=== PATIENT | female | born 1985 | race Caucasian/White ===

== ENCOUNTER 2017-12-17 14:43 | Emergency (ER) | payer SELFPAY ==
[2017-12-17] MEDS ORDERED: diphenhydrAMINE 50 MG/ML VIAL ONE (17:10)
[2017-12-17] MEDS ORDERED: Metoclopramide HCl 10 MG/2 ML VIAL ONE (17:10)
[2017-12-17 18:02] LABS: Pregnancy Test - Urine (BHCG) Negative (Negative); Pregu Control Background? CLEAR/WHITE (CLR/WHITE); Pregu Control Bar Appear? YES (CONTROL BAR); Specific Gravity 1.024 (1.002-1.036)
== END 2017-12-17 19:05 | disposition home or self-care (01) ==
LOC: ERS 14:43
DX: R51 Headache (principal); F41.9 Anxiety disorder, unspecified; F32.9 Major depressive disorder, single episode, unspecified; Z87.891 Personal history of nicotine dependence
CPT/HCPCS: 81025; 96365; 96375; J1200; J2765

== ENCOUNTER 2017-12-20 13:23 | Emergency (ER) | payer SELFPAY | END 2017-12-20 15:54 | disposition home or self-care (01) | LOC: ERS 13:23 | DX: L03.012 Cellulitis of left finger (principal); G43.909 Migraine, unspecified, not intractable, without status migrainosus; F41.9 Anxiety disorder, unspecified; F32.9 Major depressive disorder, single episode, unspecified; Z87.891 Personal history of nicotine dependence | CPT/HCPCS: 10060; 87070; 87077; 87186; 87205 ==

== ENCOUNTER 2018-01-04 08:14 | Emergency (ER) | payer SELFPAY ==
--- NOTE | 2018-01-04 08:52 | RAD ---
CHEST TWO VIEWS: Comparison: None. History: Chest wall pain. FINDINGS: Two views of the chest show normal sized cardiomediastinal silhouette. There is no evidence of consol idation, mass, or pleural effusion. The bones are unremarkable. IMPRESSION: No evidence of acute cardiopulmonary disease. POS: [facility]
[2018-01-04] MEDS ORDERED: Benzonatate 100 MG CAP ONE (09:44)
[2018-01-04] MEDS ORDERED: Ibuprofen 200 MG TAB ONE (09:44)
== END 2018-01-04 09:50 | disposition home or self-care (01) ==
LOC: ERS 08:14
DX: J11.1 Influenza due to unidentified influenza virus with other respiratory manifestations (principal); G43.909 Migraine, unspecified, not intractable, without status migrainosus; F41.9 Anxiety disorder, unspecified; F32.9 Major depressive disorder, single episode, unspecified; Z87.891 Personal history of nicotine dependence
CPT/HCPCS: 71046; 93005